=== PATIENT | female | born 1925 | race Asian ===

== ENCOUNTER 2016-07-15 20:20 | Inpatient (IN) | payer MEDICARE, MEDICAID ==
[2016-07-15 21:28] VITALS: BP 130/64
[2016-07-16] MEDS: INSULIN ASPART SLIDING SCALE 100 UNITS/ML UNIT SUBQ SCH ×4 (06:37→21:38)
[2016-07-16 07:07] LABS: % BASOPHILS 0.8 % (0.0-2.0); % EOSINOPHILS 2.8 % (0.0-5.0); % LYMPHOCYTES 16.2 % (20.0-50.0); % MONOCYTES 10.9 % (2.0-10.0); % NEUTROPHILS 69.3 % (40.0-80.0); HEMATOCRIT 34.6 % (35.0-45.0); MEAN CELL VOLUME 89.2 fl (81-100); MEAN CORPUSCULAR HEMOGLOBIN 30.9 pg (27.0-31.0); MEAN CORPUSCULAR HGB CONC 34.6 pg (28.0-36.0); MEAN PLATELET VOLUME 6.9 fl; NEUTROPHILE ABSOLUTE 4.1 Th/cmm (1.8-8.0); PLATELET COUNT 173 Th/cmm (150-400); RED BLOOD COUNT 3.88 Mil/cmm (3.80-5.20); RED CELL DISTRIBUTION WIDTH 12.4 % (11.5-20.0); WHITE BLOOD COUNT 5.9 Th/cmm (4.8-10.8)
[2016-07-16 07:36] LABS: ALKALINE PHOSPHATASE 61 U/L (34-104); ANION GAP 11.1 (7.0-16.0); BILIRUBIN,TOTAL 0.7 mg/dL (0.3-1.0); BUN - UREA NITROGEN 24 mg/dL (7-25); CALCIUM SERUM 9.2 mg/dL (8.6-10.3); CARBON DIOXIDE 27.3 mEq/L (21.0-31.0); CHLORIDE 99 mEq/L (98-107); CHOLESTEROL 205 mg/dL (<200); GLUCOSE 246 mg/dL (70-105); POTASSIUM SERUM 4.4 mEq/L (3.5-5.1); SGOT 15 U/L (13-39); SGPT/ALT 17 U/L (7-52); SODIUM SERUM 133 mEq/L (136-145); TRIGLYCERIDES 390 mg/dL (<150)
--- NOTE | 2016-07-16 11:25 | Diagnostic Imaging Report ---
Bilateral carotid artery Doppler ultrasound exam HISTORY: Stroke, CVA Sonographic sector images were obtained to the carotid bifurcation regions bilaterally. Associated Doppler data was obtained. The exam the right side demonstrates generalized intimal thickening and mild atherosclerotic changes throughout the bifurcation area. No significant narrowing or stenosis is seen. There is a tortuous internal carotid artery. Velocities and flow ratios are normal (ICC/CCA equals 1.7). The exam the left side demonstrates generalized intimal thickening along with mild focal plaque in the distal common carotid artery and carotid bulb region. No significant narrowing or stenosis. Antegrade vertebral artery flow. Velocities and flow ratios are normal (ICC/CCA equals 1.7). IMPRESSION: 1. Mild bilateral atherosclerotic changes that do not appear to be hemodynamically significant.
--- NOTE | 2016-07-16 13:25 | History & Physical ---
CHIEF COMPLAINT: Weakness. HISTORY SOURCE: Review of the chart, talking to the patient's family. HISTORY OF PRESENT ILLNESS: This 89-year-old [place] female with history of hypertension, osteoporosis, DJD, diabetes mellitus, brought in to the Emergency Room at [facility] Emergency Room for evaluation of left-sided weakness associated with drooling, which started 8 hours prior to Emergency Room presentation. According to the patient and paramedics note, the patient had multiple episodes prior to coming to the Emergency Room. This patient did not have any similar episodes before. When patient arrived in the Emergency Room, the patient was noted to have elevated blood sugar of 414. The patient had been given some insulin 10 units, blood sugar came down. The patient belongs to [facility] and the patient was transferred to [facility] for further management. The patient does not provide any meaningful history due to patient's language barrier and possible underlying dementia. PAST MEDICAL HISTORY: 1. Remarkable for diabetes. 2. Hypertension. 3. Coronary artery disease. 4. Gastroesophageal reflux disease. 5. History of uterine cancer. MEDICATIONS: At the time of transfer, the patient is taking multiple medications, which includes Fosamax, calcium, vitamin D, Colace, Pepcid, lisinopril, and meloxicam. ALLERGIES: The patient is not allergic to medications. SOCIAL HISTORY: She lives in [facility]. The patient has no smoking cigarette, alcohol or drug use. FAMILY MEDICAL HISTORY: Unavailable. REVIEW OF SYSTEMS: Unable to obtain meaningful history from the patient though the patient is able to move her upper and lower extremity and able to eat fairly well. PHYSICAL EXAMINATION: GENERAL: The patient is alert, awake, lying in the bed without any acute distress. VITAL SIGNS: Temperature 97.7, pulse is 81, respiratory rate 18, blood pressure is 126/59. SKIN: Warm to touch. HEENT: Normocephalic, atraumatic. Extraocular muscles are intact. Tongue was pale and moist. No oral lesions noted. Absent upper and lower dentition. NECK: Supple, no JVD, no hepatojugular reflux. No lymphadenopathy, thyromegaly or carotid bruit. HEART: Both heart sounds are regular. No S3, no S4, no murmur. CHEST: Lung equal in expansion, no wheezing, no crackles. ABDOMEN: Soft. No guarding, no rigidity. Liver, spleen not palpable. No palpable mass. EXTREMITIES: No edema, no cyanosis. Peripheral pulses are +1. No calf tenderness noted. NEUROLOGIC: The patient is alert, awake. The patient has somewhat normal strength since the patient is moving upper and lower extremities without any difficulty. There is no evidence of any tremor noted. There is no evidence of any facial asymmetry noted. No pronator drift. AVAILABLE DIAGNOSTIC DATA: According to the Emergency Room notes, NIH stroke scale score was 0. On the laboratory data, the patient's RBCs was 3.97, hematocrit was 35.8, sodium 130, chloride 94, BUN and creatinine is ____, glucose of 417, platelet count of 189, potassium 4.2. Troponin is less than 0.02. Magnesium 2.1, calcium 8.9 and PT, PTTs are normal. CT head was no significant abnormality. EKG, no ST-T changes representing acute ischemia. CLINICAL IMPRESSION: 1. Most likely transient cerebellar ischemia. 2. Diabetes mellitus with elevated blood sugar. 3. Hypertension. 4. Hyperlipidemia. 5. Degenerative joint disease. 6. Coronary artery disease. 7. Advanced age. PLAN: The patient has been admitted at this time to telemetry unit. Neurology evaluation will be done. The patient is to go for a carotid ultrasound, 2D echo and MRI to be done. The patient is to have Glucoscan a.c. and at bedtime with covering the blood sugar with sliding scale NovoLog insulin. Statin will be added. Aspirin will be added. Appropriate home medicine will be reconciled and we will have Neurology evaluation as well. We will follow the sap pp consultant recommendations. Care plan has been reviewed and discussed with the family. JOB# [id number]
--- NOTE | 2016-07-16 21:43 | Admit Criteria Form ---
Admit Criteria Forms - Admit Criteria Diagnosis: TRANSIENT ISCHEMIC ATTACK (TIA) Clinical Indications for Admission to Inpatient Care (Place 'X' for any and all applicable criteria): Admission is indicated for ANY ONE of the following(1)(2)(3)(4)(5): [ ]I. Immediate inpatient procedure is needed (eg, endarterectomy). [X]II. Inpatient admission required rather than observation care (Also use Transient Ischemic Attack (TIA): Observation Care Criteria as appropriate) because of ANY ONE of the following: [ ]a) Focal neurologic signs or symptoms persist or recurring [ ]b) Cardiac arrhythmias of immediate concern [ ]c) Clinically significant cardiac disorder identified that requires inpatient care (eg, severe valvular disease, atrial myxoma, cardiomyopathy) [ ]d) Hypertension requiring inpatient treatment [ ]e) Parenteral anticoagulation required (eg, alternative forms of anticoagulation not appropriate or not feasible) as indicated by ALL of the following(13): [ ]i) Temporary subtherapeutic anticoagulation unacceptable because of high risk of short-term venous or arterial thromboembolism due to ANY ONE of the following(14)(15)(16): [ ]1) Atrial fibrillation suspected as etiology of TIA(17)(18)(19)(20)(21) [ ]2) Venous thromboembolism within past 12 months [ ]3) Underlying malignancy [ ]4) Patient with mechanical cardiac valve(22)( 23) [ ]5) Underlying hypercoagulable state (eg, protein C or protein S deficiency antithrombin deficiency, antiphospholipid antibodies) [ ]6) Patient at temporary high risk of thromboembolism (eg, status post orthopedic surgery) [ ]ii) Contraindications to outpatient use of "bridging" agent or alternative oral anticoagulant[B] as indicated by ALL of the following: [ ]1) Contraindication to outpatient use of low- molecular-weight heparin as "bridging" agent as indicated by ANY ONE of the following(15): [ ]A. Documented current or history of heparin-induced thrombocytopenia(24) [ ]B. Severe thrombocytopenia (eg, platelet count less than 50,000/mm3 (76u985/L) [ ]C. Documented allergy to heparin, low- molecular-weight heparin, or pork products [ ]D. Renal failure (creatinine clearance less than 30 mL/min/1.73m2 (0.50mL/sec/1.73m2) or on dialysis) [ ]E. Inability to manage self-injection ( eg, by patient, caregiver, or visiting nurse) [ ]2) Contraindication to outpatient use of fondaparinux as "bridging" agent as indicated by ANY ONE of the following(25)(26)(27)(28 ): [ ]A. Severe thrombocytopenia (eg, platelet count less than 50,000/mm3 (50 x109/L)) [ ]B.Hypersensitivity to fondaparinux, related drugs, or product components [ ]C.Renal failure (creatinine clearance less than 30 mL/min/1.73m2 (0.50mL/sec/1.73m2) or on dialysis) [ ]D.Inability to manage self-injection ( eg, by patient, caregiver, or visiting nurse [ ]3. Oral direct thrombin inhibitor (eg, dabigatran) or oral coagulation factor Xa inhibitor (eg, rivaroxaban, apixaban) not appropriate as oral anticoagulation (eg, indication not appropriate) or contraindicated (eg, hypersensitivity, creatinine clearance less than 15 mL/min/1.73m2 ( 0.25 mL/sec/1.73m2) or on dialysis). [ ]f) Continuous IV infusion of anticoagulant, platelet inhibitor, vasoactive or antiarrhythmia(18)(19) [X]g) Other condition, treatment, or monitoring requiring inpatient admission [ ]III. Contraindications and/or Inappropriate clinical situations for Observational Care in patients with Transient Ischemic Attack (TIA), when ANY ONE of the following is required: [ ]a) Patient with persistent or severe neurological deficit 24 [ ]b) Patient with acute CVA or other identified pathology should be admitted to inpatient for further care 25 [X]IV. General contraindications and/or Inappropriate clinical situations for Observational Care in patients with Transient Ischemic Attack, when ANY ONE of the following is required: [X]a) Prediction of prolongation of LOS based on ANY ONE of the following may be considered as a contraindication for observational care 2, 3, 4, 5, 6, 7, 8, 9, 10, 11 [X]i) Age > 65 yrs. [ ]ii) Patient arriving by ambulance [ ]iii) Patient with high acuity [ ]iv) Patient requiring vital sign monitoring [ ]v) Patient on IV medication [ ]b) Systolic blood pressures 180mmHg 3,12 [ ]c) Patient with altered mental status including delirium and other alteration of consciousness, (3) [ ]d) Patient whose discharge disposition will be to a half-way home or rehabilitation home should not be managed in Emergency Department Observation Unit. CMS rule requires 3 days hospital stay before such placement.3,13 [ ]e) Patient with failure to thrive due to broad array of etiologies 3,16,17 [ ]f) Inability to ambulate 3,14 Extended stay beyond goal length of stay may be needed for(4)(30)(32): [ ]a) Parenteral anticoagulation required [ ]b) Dangerous arrhythmia [ ]c) Cardiac valvular disorder, atrial myxoma, cardiomyopathy [ ]d) Uncontrolled severe hypertension [ ]e) Severe carotid stenosis [ ]f) Active comorbidities (eg, heart failure) [ ]g) Extracranial vertebrobasilar disease(29) [ ]h) Clinical evolution of TIA into cerebrovascular accident (stroke) The original [facility] content created by [employer] has been revised. The portions of thecontent which have been revised are identified through the use of italic text or in bold, and [facility] has neither reviewed nor approved the modified material. All other unmodified content is copyright [employer]. Please see references footnoted in the original [facility] edition 2016 Admit Criteria Met?: Yes
[2016-07-17] MEDS: INSULIN ASPART SLIDING SCALE 100 UNITS/ML UNIT SUBQ SCH ×4 (06:50→20:47)
--- NOTE | 2016-07-17 08:30 | Consultation ---
HISTORY OF PRESENT ILLNESS: The patient is an 89-year-old. The patient noted to have left-sided weakness. It seems to be better. She had gone to [place]. The patient has difficulty with some speech. Blood sugars were elevated. PAST MEDICAL HISTORY: Diabetes, hypertension, coronary artery disease, uterine cancer. MEDICATIONS: Per reconciliation. ALLERGIES: None known. SOCIAL HISTORY: Does not smoke or drink. REVIEW OF SYSTEMS: Twelve-point negative except for above. PHYSICAL EXAMINATION: VITAL SIGNS: Temperature 98.2, blood pressure 130/60, pulse is around about 78. NECK: Supple. No bruits. HEART: Sounds S1, S2. LUNGS: Clear. NEUROLOGIC: Awake. She will answer questions in her language via the nozzle tender. CRANIAL: Pupils reactive to light. No field defect. MOTOR: She will lift both arms up. I do not see much weakness at the moment. Legs, she will lift them both up. Reflexes 1, difficult to get at the knees and ankles. INVESTIGATIONS: CT scan of the head is reported to be negative from [facility]. The patient's carotid Doppler here shows bilateral plaque, but no stenosis. Workup with MRI. LABORATORY DATA: Labs is pending. Her sodium 133. Glucose is down to 188, LDL is 89. IMPRESSIONS: 1. Transient ischemic attack. 2. Diabetes. 3. Hypertension. 4. Coronary artery disease. The patient will be on antiplatelet medications. JOB# [id number]
[2016-07-17] MEDS: Calcium Carb/Vit D 500 mg/200 U Tab PO SCH (08:40)
[2016-07-17] MEDS: Vitamin D3 2,000 IU SGL PO SCH (08:40)
--- NOTE | 2016-07-17 15:24 | Cardiology ---
Patient of Dr. Valdes. M-MODE ECHOCARDIOGRAM: Mitral valve, anterior leaflet of the mitral valve shows normal excursion, EF velocity. Posterior leaflet of the mitral valve shows normal excursion. Left ventricular posterior wall shows increased thickness, normal excursion. Interventricular septum shows increased thickness, normal excursion, hypertrophy of the left ventricle, ejection fraction 57%. Left atrium normal. Aortic root shows normal dimension, normal excursion of aortic leaflets. CONCLUSION: Hypertrophy of the left ventricle, ejection fraction 57%. 2D ECHO: Long axis view showed normal sized left ventricle with hypertrophy of the left ventricle. Left atrium normal. Aortic root shows normal dimension, normal excursion of aortic leaflets. Short axis view of mitral valve normal. Short axis view of aortic valve normal. Apical four chamber view showed normal sized left ventricle with hypertrophy of the left ventricle. Left atrium normal. Right ventricular cavity, right atrium normal. No pericardial effusion. CONCLUSION: Hypertrophy of the left ventricle, ejection fraction 57%. Doppler study shows prominent A wave consistent with poor compliance of left ventricle. Mild mitral regurgitation, mild tricuspid regurgitation. CONCLUSION: Mild mitral regurgitation, mild tricuspid regurgitation, hypertrophy of the left ventricle, ejection fraction 57%. [facility]# [id number]
[2016-07-17] MEDS ORDERED: Insulin Detemir 100 units/mL 10mL Vial SUBQ SCH (21:00)
[2016-07-18] MEDS: INSULIN ASPART SLIDING SCALE 100 UNITS/ML UNIT SUBQ SCH ×3 (06:36→19:17)
--- NOTE | 2016-07-18 09:17 | Diagnostic Imaging Report ---
MRI Brain without intravenous Contrast Indication: TIA Comparison: none Technique: Multiplanar T1, T2, FLAIR, GRE and diffusion weighted images of the brain were obtained without intravenous contrast.. Findings: Exam is markedly limited due to motion. No evidence of restricted diffusion to suggest an acute infarction. Evaluation for subtle hemorrhage is is limited on this examination. Mild white matter disease is noted. There is increased T1 signal within the right basal ganglia. The ventricles and basal cisterns are patent. No mass effect or midline shift. There is mucosal thickening of paranasal sinuses. Atrophy is noted most prominent within the bifrontal regions. IMPRESSION: Limited exam due to motion. No evidence of an acute infarction. Atrophy most pronounced along the bifrontal lobe regions. Abnormal signal seen within the right basal ganglia. Findings may be due to mineral including calcium deposition. A short-term follow-up CT examination is suggested for additional assessment. Mild supratentorial white matter disease which is nonspecific and may be due to chronic microvessel ischemia.
[2016-07-18] MEDS ORDERED: IOHEXOL 300MG/ML 100 ML VIAL IVP ONE (10:15)
--- NOTE | 2016-07-18 12:20 | Diagnostic Imaging Report ---
CT scan of the brain with intravenous contrast HISTORY: Stroke, CVA Total DLP equals 604 CTDI equals 32.8 Axial sections were obtained from the base of the skull to the vertex following administration of intravenous contrast. There is a normal ventricular system size for age. There is enlargement of cerebral sulci and subarachnoid cisterns reflecting atrophy. Findings are somewhat more pronounced within the frontal regions of the brain. No acute parenchymal abnormalities. No intracerebral hemorrhage. No mass effect or shift of midline structures. No extra-axial masses or abnormal fluid collections. No abnormal foci or regions of enhancement following contrast administration. IMPRESSION: 1. No acute abnormalities 2. Cerebral atrophy
[2016-07-18] MEDS: Calcium Carb/Vit D 500 mg/200 U Tab PO SCH (12:52)
[2016-07-18] MEDS: Vitamin D3 2,000 IU SGL PO SCH (12:52)
--- NOTE | 2016-07-30 14:18 | Discharge Summary ---
PRINCIPAL DIAGNOSES: 1. Transient ischemic attack. 2. Uncontrolled diabetes. 3. Hypertension. 4. Hyperlipidemia. 5. Coronary artery disease. 6. Degenerative joint disease. 7. Gastroesophageal reflux disease. 8. History of cerebrovascular accident. 9. Osteoporosis. BRIEF STATEMENT FOR THE REASON FOR ADMISSION: This 89-year-old female transferred from [facility] Emergency Room to [facility] for further care for insurance purpose after the patient was presented to Emergency Room for evaluation of left-sided weakness associated with drooling of her mouth 8 hours prior to presentation to the Emergency Room. The patient's initial workup was negative in the Emergency Room. The patient was transferred here. Please refer to my medical H and P for further information. HOSPITAL COURSE: The patient was admitted to telemetry unit. Neurology evaluation was requested. Carotid ultrasound, 2D echo and MRI was requested. Diabetes was controlled with glucose a.c. and at bedtime with sliding scale insulin and basal insulin along with home medications. Statin was also added. Aspirin was started as well. The patient was seen by Dr. Cooper Chaves, who agreed with the treatment plan addressed by myself. MRI of the brain was done, which did reveal the patient had a limited exam due to motion. No evidence of acute infarction, noted atrophy, most pronounced along the bifrontal region noted, abnormal signal seen at the right basal ganglia, which was consistent with calcium deposition. The patient also had a carotid ultrasound, which was unremarkable for any hemodynamically significant stenosis. Echocardiogram did reveal the patient had mild mitral regurgitation with hypertrophy of the left ventricular ejection fraction of 57%. The patient did have a neuro check during the stay in the hospital, which was unremarkable since the patient presented to the hospital. After talking to the health analytics consultant, it was decided that the patient should go back to the residential. The patient was discharged back to residential on 07/18/2016 in stable condition where the patient will be followed by her own primary doctor. The patient was given prescription of aspirin and new prescription for diabetes. The patient will be followed at the time of discharge. Other medications were reconciliated. JOB# [id number]
== END 2016-07-18 19:45 | disposition short-term general hospital (02) | DRG 638 ==
LOC: TELE 20:20
PROVIDERS: ADMIT Internal Medicine; ATTEND Internal Medicine
DX: E11.65 Type 2 diabetes mellitus with hyperglycemia (principal); G45.9 Transient cerebral ischemic attack, unspecified; I10 Essential (primary) hypertension; E78.5 Hyperlipidemia, unspecified; M19.90 Unspecified osteoarthritis, unspecified site; I25.10 Atherosclerotic heart disease of native coronary artery without angina pectoris; K21.9 Gastro-esophageal reflux disease without esophagitis; M81.0 Age-related osteoporosis without current pathological fracture; Z85.42 Personal history of malignant neoplasm of other parts of uterus
CPT/HCPCS: 36415-UA; 70460-TC; 80053-TC; 80061-TC; 82948-90; 83036-90; 85025-TC; 93880-TC; 97530; J1815; Q9967; X3401; X3904; Z7610; Z7610-TC